=== PATIENT | female | born 1945 | race Caucasian/White ===

== ENCOUNTER 2017-07-23 15:30 | Emergency (ER) | payer OTHER ==
--- NOTE | 2017-07-23 17:01 | ER ---
Nurse's Notes [facility] Name: Sweta Aburto Age: 72 yrs Sex: Female : 1945 Arrival Date: 07/23/2017 Time: 15:34 Bed 10 Private MD: Sangeeta Smith Diagnosis: Cutaneous abscess of face Presentation: 07/23 15:37 Presenting complaint: Patient states: i got bit by a spider on my L side of face, hj noticed it last Sunday and the pain is going down my neck;. Transition of care: patient was not received from another setting of care. Onset of symptoms was July 23, 2017. Initial Sepsis Screen: Does the patient meet any 2 criteria? No. Patient's initial sepsis screen is negative. Does the patient have a suspected source of infection? Yes: Skin breakdown/wound. Care prior to arrival: None. 15:37 Method Of Arrival: Ambulatory 15:37 Acuity: MYAH 4 hj Triage Assessment: 15:39 Bite description: bite sustained to left cheek and left jaw by a spider, animal hj information: vaccination(s) is not applicable. General: Appears in no apparent distress. comfortable, Behavior is calm, cooperative, appropriate for age. Pain: Complains of pain in left cheek and left jaw. Historical: - Allergies: 15:39 amytriptiline; hj 15:39 Erythromycin; hj 15:39 Ibuprofen; hj - Home Meds: 15:39 doxepin 25 mg Oral cap 1 cap nightly [Active]; gabapentin 300 mg Oral cap 1 cap 3 times hj per day [Active]; - PMHx: 15:39 Diverticulitis; Fibromyalgia; ibs; Rheumatoid Arthritis; hj - PSHx: 15:39 None; hj - Social history:: The patient lives at home. Screenin:17 Abuse screen: Denies threats or abuse. Nutritional screening: No deficits noted. la1 Tuberculosis screening: No symptoms or risk factors identified. Fall Risk None identified. Assessment: 15:40 Derm: Skin Skin is pink, warm \T\ dry. 17:17 Reassessment: Patient appears in no apparent distress at this time. No changes from la1 previously documented assessment. Patient and/or family updated on plan of care and expected duration. Pain level reassessed. Patient is alert, oriented x 3, equal unlabored respirations, skin warm/dry/pink. Derm: Rash noted that is red, on left jaw. Vital Signs: 15:40 BP 108 / 69; Pulse 82; Resp 18; Temp 98.2(TE); Pulse Ox 96% on R/A; Weight 59.42 kg; hj Height 5 ft. 1 in. (154.94 cm); 15:40 Body Mass Index 24.75 (59.42 kg, 154.94 cm) ED Course: 15:34 Patient arrived in ED. rg4 15:34 Sangeeta Smith MD is Private Physician. rg4 15:38 Triage completed. hj 15:40 Arm band placed on left wrist. hj 16:25 Jacinto Alberto MD is Attending Physician. gs 17:17 Bed in low position. Call light in reach. la1 17:18 No provider procedures requiring assistance completed. Patient did not have IV access la1 during this emergency room visit. Administered Medications: No medications were administered Outcome: 17:00 Discharge ordered by . gs 17:18 Patient left the ED. la1 Signatures: Damion Tobar RN RN la1 Davin Zhang RN RN hj Garcia, Rubi rg4 Jacinto Alberto MD MD Corrections: (The following items were deleted from the chart) 15:42 15:40 Pulse 82bpm; Resp 18bpm; Pulse Ox 96% RA; Temp 98.2F Temporal; 59.42 kg; Height 5 hj ft. 1 in.; BMI: 24.7; hj
--- NOTE | 2017-07-23 17:01 | EDPHYS ---
Physician Documentation [facility] Name: Sweta Aburto Age: 72 yrs Sex: Female : 1945 Arrival Date: 07/23/2017 Time: 15:34 Bed 10 Private MD: Sangeeta mSith ED Physician Jacinto Alberto HPI: 07/23 16:57 This 72 yrs old Female presents to ER via Ambulatory with complaints of gs Insect Bite. 16:57 the patient presents with a swollen area of the left cheek. Description: The affected gs area is very small, confluent, raised. Onset: The symptoms/episode began/occurred 1 week(s) ago, and became persistent. Possible cause(s): insect sting, spider bite. Associated signs and symptoms: Pertinent negatives: drainage, fever. Modifying factors: the symptoms are alleviated by nothing, the symptoms are aggravated by touching. Severity of symptoms: At their worst the symptoms were mild, in the emergency department the symptoms are unchanged. The patient has not experienced similar symptoms in the past. The patient has not recently seen a physician. Historical: - Allergies: 15:39 amytriptiline; hj 15:39 Erythromycin; hj 15:39 Ibuprofen; hj - Home Meds: 15:39 doxepin 25 mg Oral cap 1 cap nightly [Active]; gabapentin 300 mg Oral cap 1 cap 3 times hj per day [Active]; - PMHx: 15:39 Diverticulitis; Fibromyalgia; ibs; Rheumatoid Arthritis; hj - PSHx: 15:39 None; hj - Social history:: The patient lives at home. ROS: 16:57 Constitutional: Negative for fever. gs 16:57 All other systems are negative. Exam: 16:57 Eyes: Pupils equal round and reactive to light, extra-ocular motions intact. Lids and gs lashes normal. Conjunctiva and sclera are non-icteric and not injected. Cornea within normal limits. Periorbital areas with no swelling, redness, or edema. ENT: Nares patent. No nasal discharge, no septal abnormalities noted. Tympanic membranes are normal and external auditory canals are clear. Oropharynx with no redness, swelling, or masses, exudates, or evidence of obstruction, uvula midline. Mucous membranes moist. Neck: Trachea midline, no thyromegaly or masses palpated, and no cervical lymphadenopathy. Supple, full range of motion without nuchal rigidity, or vertebral point tenderness. No Meningismus. Chest/axilla: Normal chest wall appearance and motion. Nontender with no deformity. No lesions are appreciated. Cardiovascular: Regular rate and rhythm with a normal S1 and S2. No gallops, murmurs, or rubs. Normal PMI, no JVD. No pulse deficits. Respiratory: Lungs have equal breath sounds bilaterally, clear to auscultation and percussion. No rales, rhonchi or wheezes noted. No increased work of breathing, no retractions or nasal flaring. 16:57 Constitutional: The patient appears alert, awake, non-toxic. 16:57 Head/face: Noted is small 1x1cm indurated lesion very mild erythema just on lesion. Vital Signs: 15:40 BP 108 / 69; Pulse 82; Resp 18; Temp 98.2(TE); Pulse Ox 96% on R/A; Weight 59.42 kg; hj Height 5 ft. 1 in. (154.94 cm); 15:40 Body Mass Index 24.75 (59.42 kg, 154.94 cm) MDM: 16:47 Patient medically screened. gs 16:57 Differential diagnosis: abscess, insect bite. Data reviewed: vital signs, nurses notes, gs and as a result, I will discharge patient. Administered Medications: No medications were administered Disposition: 07/23/17 17:00 Discharged to Home. Impression: Cutaneous abscess of face. - Condition is Stable. - Discharge Instructions: Abscess, [id number]. - Prescriptions for Clindamycin HCl 150 mg Oral Capsule - take 2 capsule by ORAL route every 8 hours for 7 days; 42 capsule. - Medication Reconciliation Form, Thank You Letter, Antibiotic Education, Prescription Opioid Use form. - Follow up: Private Physician; When: 2 - 3 days; Reason: Re-evaluation by your physician. Signatures: Damion Tobar RN RN la1 Davin Zhang RN RN Jacinto Alberto MD MD Corrections: (The following items were deleted from the chart) 17:18 17:00 07/23/2017 17:00 Discharged to Home. Impression: Cutaneous abscess of face. la1 Condition is Stable. Forms are Medication Reconciliation Form, Thank You Letter, Antibiotic Education, Prescription Opioid Use. Follow up: Private Physician; When: 2 - 3 days; Reason: Re-evaluation by your physician. gs
== END 2017-07-23 17:18 | disposition home or self-care (01) ==
LOC: ER 15:30
DX: L02.01 Cutaneous abscess of face (principal); Z88.3 Allergy status to other anti-infective agents; Z88.6 Allergy status to analgesic agent; Z88.8 Allergy status to other drugs, medicaments and biological substances
CPT/HCPCS: 99281